=== PATIENT | female | born 1995 | race Caucasian/White ===

== ENCOUNTER 2022-09-15 16:02 | Emergency (ER) | payer OTHER ==
[~2022-09-15] VITALS: Ht 154.9 cm; Wt 81.2 kg
[2022-09-15 16:05] VITALS: BP 132/78
[2022-09-15] MEDS ORDERED: IBUP-2213 PO (17:56)
[2022-09-15 18:19] VITALS: BP 132/78
--- NOTE | 2022-09-15 18:20 | NUR ---
ASSUMED PATIENT CARE FOR DC INSTRUCTIONS, Patient discharged with v/s stable. Written and verbal after care instructions given and explained. Patient alert, oriented and verbalized understanding of instructions. Ambulatory with steady gait. All questions addressed prior to discharge. ID band removed. Patient advised to follow up with PMD. Rx of IBUPROFEN given. Patient educated on indication of medication including possible reaction and side effects. Opportunity to ask questions provided and answered.
== END 2022-09-15 18:19 | disposition home or self-care (01) ==
LOC: MED 16:02
DX: S61.307A Unspecified open wound of left little finger with damage to nail, initial encounter (principal); X58.XXXA Exposure to other specified factors, initial encounter; Y93.89 Activity, other specified; Y92.89 Other specified places as the place of occurrence of the external cause; Y99.8 Other external cause status
CPT/HCPCS: 99282